=== PATIENT | male | born 1940 | race Caucasian/White ===

== ENCOUNTER 2020-05-25 14:20 | Emergency (ER) | payer OTHER ==
[~2020-05-25] VITALS: Ht 162.6 cm; Wt 79.4 kg
[~2020-05-25 14:20] MED LIST: ACID REDUCER20 MG PO; LIPITOR40 MG PO; PLAVIX75 MG PO; VASOTEC10 MG NGT
[2020-05-25] MEDS ORDERED: TAMS0.4C PO (14:31)
[2020-05-25] MEDS ORDERED: FINASTERIDE5 MG PO (14:31)
[2020-05-25] MEDS ORDERED: ACID REDUCER20 M1 PO (14:32)
[2020-05-25] MEDS ORDERED: HUMULIN N100 UNIT/2 (14:32)
[2020-05-25] MEDS ORDERED: CIPRO500 MG PO (17:54)
== END 2020-05-25 18:03 | disposition home or self-care (01) ==
LOC: ER 14:20
DX: R31.0 Gross hematuria (principal)

== ENCOUNTER 2021-06-13 14:51 | Emergency (ER) | payer OTHER ==
[~2021-06-13] VITALS: Ht 162.6 cm; Wt 79.8 kg
[~2021-06-13 14:51] MED LIST changes: +ACID REDUCER20 M1 PO; +CIPRO500 MG PO; +FINASTERIDE5 MG PO; +HUMULIN N100 UNIT/2; +TAMS0.4C PO
== END 2021-06-13 18:35 | disposition home or self-care (01) ==
LOC: ER 14:51
DX: K80.80 Other cholelithiasis without obstruction (principal); K57.90 Diverticulosis of intestine, part unspecified, without perforation or abscess without bleeding; K74.60 Unspecified cirrhosis of liver; I10 Essential (primary) hypertension; Z88.0 Allergy status to penicillin; Z91.018 Allergy to other foods

== ENCOUNTER 2021-09-06 21:26 | Emergency (ER) | payer OTHER ==
[~2021-09-06] VITALS: Ht 162.6 cm; Wt 79.8 kg
[2021-09-07] MEDS ORDERED: PEPCID40 MG PO (03:48)
[2021-09-07] MEDS ORDERED: PROTONIX40 MG PO (03:48)
== END 2021-09-07 04:15 ==
LOC: ER 21:26
DX: K29.60 Other gastritis without bleeding (principal); K74.60 Unspecified cirrhosis of liver; E11.9 Type 2 diabetes mellitus without complications; Z79.4 Long term (current) use of insulin; Z88.0 Allergy status to penicillin; Z91.018 Allergy to other foods

== ENCOUNTER 2021-11-10 16:26 | Inpatient (IN) | payer OTHER ==
[~2021-11-10] VITALS: Ht 152.4 cm; Wt 79.8 kg
[~2021-11-10 16:26] MED LIST changes: +PEPCID40 MG PO; +PROTONIX40 MG PO
--- NOTE | 2021-11-10 16:51 | NUR ---
PACIENTE ALERTA Y ORIENTADO X3. REFIERE VENIR POR DOLOR EN EL CUADRANTE INFEREIOR ANDRE DE ABDOMEN DESDE ANOCHE. AL MOMENTO NO TIENE NAUSEAS, VOMITOS O DIARREAS. SE REALIZA EKG Y SE PRESENTA A LA HE.
--- NOTE | 2021-11-11 00:32 | NUR ---
PTE MASCULINO ALERTA Y ORIENTADO EN LAS FREDDIE ESFERAS ES RE-EVALUADO POR . SE ORIENTA SOBRE ORDENES DE TRATAMIENTO REFIERE COMPRENDER. SE CANALIZA VENA BAJO MEDIDAS ASEPTICAS EN MANO R+ AREA ADDISON DE EDEMA Y ERITEMA. SE ADMINISTRAN LIQUIDOS INTRAVENOSOS, JAMES ORDEN MEDICA.
--- NOTE | 2021-11-11 08:37 | NUR ---
PTE ALERTA EN COMPANIA DE FAMILIAR,EN JONA CON BARANDAS ELEVADAS,AREA DE VENOPUNCION PATENTE Y ADDISON DE EDEMA CON FLUIDOS DE MANTENIMENTO BAJANDO SIN DIFICULTAD,EVALUADO POR DRA PEREZ.
== END 2021-11-28 22:13 | disposition home or self-care (01) | DRG 439 ==
LOC: ER 16:26 → SEC-K 11-11 09:52 → MEDJ 11-11 09:52 → MEDI 11-11 09:52 → MEDJ 11-12 16:43
PROVIDERS: Internal Medicine Gastroenterology; ADMIT Internal Medicine; ATTEND Internal Medicine
PROC: 0DB98ZX Excision of Duodenum, Via Natural or Artificial Opening Endoscopic, Diagnostic (ICD-10-PCS; principal; 2021-11-14 17:15)
PROC: BF14YZZ Fluoroscopy of Gallbladder, Bile Ducts and Pancreatic Ducts using Other Contrast (ICD-10-PCS; 2021-11-22)
PROC: 0FBC8ZX Excision of Ampulla of Vater, Via Natural or Artificial Opening Endoscopic, Diagnostic (ICD-10-PCS; 2021-11-22)
PROC: 0F9930Z Drainage of Common Bile Duct with Drainage Device, Percutaneous Approach (ICD-10-PCS; 2021-11-22)
DX: K85.10 Biliary acute pancreatitis without necrosis or infection (principal); K80.51 Calculus of bile duct without cholangitis or cholecystitis with obstruction; K29.80 Duodenitis without bleeding; E88.09 Other disorders of plasma-protein metabolism, not elsewhere classified; R74.8 Abnormal levels of other serum enzymes; E11.9 Type 2 diabetes mellitus without complications; Z79.4 Long term (current) use of insulin; N40.0 Benign prostatic hyperplasia without lower urinary tract symptoms; I11.9 Hypertensive heart disease without heart failure; I25.10 Atherosclerotic heart disease of native coronary artery without angina pectoris